=== PATIENT | female | born 1950 | race Two or more races ===

== ENCOUNTER 2023-01-06 12:51 | Inpatient (IN) | payer MEDICARE ==
[~2023-01-06] VITALS: Ht 160 cm; Wt 61.7 kg
[2023-01-06] MEDS ORDERED: AZITHROMYCIN 500 MG in IV D5W 250 ML IV ONE (13:30)
[2023-01-06] MEDS ORDERED: CEFTRIAXONE 1GM BAG (ER ONLY) 50 ML IV ONE ×2 (13:30→13:44)
[2023-01-06 14:22] LABS: BASOPHILS % (AUTO) 0.2 % (0.0-2.0); EOSINOPHILS % (AUTO) 0.1 % (0.0-6.0); HEMATOCRIT 36 % (33-45); HEMOGLOBIN 11.9 g/dL (11.5-14.8); LYMPHOCYTES # (AUTO) 0.6 K/uL (0.8-4.8); LYMPHOCYTES % (AUTO) 4.3 % (20.0-44.0); MEAN CORPUSCULAR HEMOGLOBIN 28 PG (26.0-33.0); MEAN CORPUSCULAR HGB CONC 34 g/dl (31.0-36.0); MEAN CORPUSCULAR VOLUME 83 fL (82-100); MONOCYTES # (AUTO) 1.2 K/uL (0.1-1.30); MONOCYTES % (AUTO) 8.5 % (2.0-12.0); NEUTROPHILS # (AUTO) 12.3 K/uL (1.8-8.9); NEUTROPHILS % (AUTO) 86.9 % (43.0-81.0); PLATELET COUNT (AUTO) 348 K/uL (150-450); RED BLOOD CELL COUNT(AUTO) 4.31 MIL/uL (4.0-5.2); RED CELL DISTRIBUTION WIDTH 15.2 % (11.5-15.0); WHITE BLOOD COUNT (AUTO) 14.2 K/uL (4.3-11.0)
[2023-01-06] MEDS ORDERED: BUPR-319 PO (14:41)
[2023-01-06] MEDS ORDERED: SIMV-46 PO (14:41)
[2023-01-06] MEDS ORDERED: ASPI-1169 PO (14:41)
[2023-01-06] MEDS ORDERED: [UNRECOGNIZED DRUG - OTHER] PO (14:41)
[2023-01-06] MEDS ORDERED: FLUO40CA49 PO (14:41)
[2023-01-06] MEDS ORDERED: CHOL100043 PO (14:41)
[2023-01-06] MEDS ORDERED: OMEP40CA21 PO (14:41)
[2023-01-06 14:51] LABS: CALCIUM, SERUM 9.1 mg/dL (8.5-10.1); CARBON DIOXIDE 25 mmol/L (21-32); CHLORIDE 94 mmol/L (98-107); CREATININE 0.9 mg/dL (0.6-1.3); GLUCOSE 128 mg/dL (74-106); POTASSIUM 4.2 mmol/L (3.5-5.1); SODIUM SERUM 131 mmol/L (136-145); UREA NITROGEN, BLOOD 14 mg/dL (7-18)
[2023-01-06] MEDS ORDERED: BENZONATATE 100 MG CAPSULE PO ONE (14:54)
[2023-01-06] MEDS ORDERED: BENZONATATE 100 MG CAPSULE PO PRN (15:00)
[2023-01-06] MEDS ORDERED: IV NS 0.9% 1,000 ML BAG IV ONE (15:30)
[2023-01-06] MEDS ORDERED: CEFTRIAXONE 1 G in IV D5W 50 ML IV SCH (19:00)
[2023-01-06] MEDS ORDERED: ONDANSETRON HCL/PF 4 MG/2 ML VIAL IVP PRN (19:00)
[2023-01-06] MEDS ORDERED: AZITHROMYCIN 500 MG in IV D5W 250 ML IV SCH (19:00)
[2023-01-06] MEDS ORDERED: IV NS 0.9% 1,000 ML IV PRN (19:00)
[2023-01-06 19:30] VITALS: BP 109/55; TEMP 98.2; O2SAT 95
[2023-01-06 21:51] VITALS: BP 109/55; TEMP 98.2; O2SAT 95
[2023-01-07] MEDS ORDERED: ALBUTEROL HALF STRENGTH 1.25 MG/3 ML VIAL.NEB NEB PRN (00:30)
[2023-01-07] MEDS ORDERED: IPRATROPIUM NEB FS 0.5 MG/2.5 ML AMPUL.NEB NEB PRN (00:30)
[2023-01-07] MEDS ORDERED: GUAIFENESIN 300 MG/15 ML UDC PO PRN (00:30)
[2023-01-07 01:51] VITALS: BP 149/108; TEMP 98.5; O2SAT 95
[2023-01-07 02:15] LABS: ALANINE AMINOTRANSFERASE 62 U/L (12-78); ALBUMIN 3.1 g/dL (3.4-5.0); ALKALINE PHOSPHATASE 104 U/L (46-116); ASPARTATE AMINOTRANSFERASE 52 U/L (15-37); BILIRUBIN,DIRECT 0.1 mg/dL (0.0-0.2); BILIRUBIN,TOTAL 0.4 mg/dL (0.2-1.0); TOTAL PROTEIN, SERUM 7.5 g/dL (6.4-8.2)
[2023-01-07 05:51] VITALS: BP 149/108; TEMP 98.5; O2SAT 95
[2023-01-07 06:22] LABS: BASOPHILS % (AUTO) 0.2 % (0.0-2.0); EOSINOPHILS % (AUTO) 0.2 % (0.0-6.0); HEMATOCRIT 31 % (33-45); HEMOGLOBIN 10.3 g/dL (11.5-14.8); LYMPHOCYTES # (AUTO) 1.1 K/uL (0.8-4.8); LYMPHOCYTES % (AUTO) 9.9 % (20.0-44.0); MEAN CORPUSCULAR HEMOGLOBIN 28 PG (26.0-33.0); MEAN CORPUSCULAR HGB CONC 34 g/dl (31.0-36.0); MEAN CORPUSCULAR VOLUME 83 fL (82-100); MONOCYTES # (AUTO) 1.4 K/uL (0.1-1.30); MONOCYTES % (AUTO) 12.2 % (2.0-12.0); NEUTROPHILS # (AUTO) 8.8 K/uL (1.8-8.9); NEUTROPHILS % (AUTO) 77.5 % (43.0-81.0); PLATELET COUNT (AUTO) 318 K/uL (150-450); RED BLOOD CELL COUNT(AUTO) 3.69 MIL/uL (4.0-5.2); RED CELL DISTRIBUTION WIDTH 14.8 % (11.5-15.0); WHITE BLOOD COUNT (AUTO) 11.3 K/uL (4.3-11.0)
[2023-01-07 06:50] LABS: CALCIUM, SERUM 8.5 mg/dL (8.5-10.1); CREATININE 0.8 mg/dL (0.6-1.3); MAGNESIUM 2.7 mg/dL (1.8-2.4)
[2023-01-07] MEDS: PANTOPRAZOLE 40 MG TABLET.DR PO SCH (07:45)
[2023-01-07 08:00] VITALS: BP 102/42; TEMP 97.8; O2SAT 94
[2023-01-07 08:03] LABS: PHOSPHORUS 2.8 mg/dL (2.5-4.9)
[2023-01-07] MEDS: CHOLECALCIFEROL 1,000 UNIT TABLET (VIT D3) PO SCH (08:37)
[2023-01-07] MEDS: SIMVASTATIN 20 MG TABLET PO SCH (08:38)
[2023-01-07] MEDS: FLUOXETINE HCL 20 MG CAPSULE PO SCH (08:38)
[2023-01-07] MEDS: ASPIRIN 81 MG TAB.CHEW PO SCH (08:38)
[2023-01-07] MEDS: BUPROPION XL 150 MG TAB.ER.24 PO SCH (08:38)
[2023-01-07] MEDS ORDERED: GUAIFENESIN/CODEINE 10 ML UDC PO PRN (11:30)
[2023-01-07] MEDS ORDERED: HYDROCODONE BIT/HOMATROPINE 5 ML UDC PO PRN (11:30)
[2023-01-07 11:37] LABS: APPEARANCE,URINE CLEAR (CLEAR); BILIRUBIN,URINE NEGATIVE (NEGATIVE); BLOOD, URINE NEGATIVE Ery/uL (NEGATIVE); COLOR,URINE YELLOW (YELLOW); KETONES,URINE NEGATIVE (NEGATIVE); LEUKOCYTE ESTERASE ,URINE NEGATIVE (NEGATIVE); NITRITE, URINE NEGATIVE (NEGATIVE); PH,URINE 6.5 (5.0-8.0); PROTEIN,URINE NEGATIVE (NEGATIVE); UGLUCOSE NEGATIVE (NEGATIVE); UROBILINOGEN,URINE 0.2 EU/dL (0.2)
[2023-01-07 11:45] LABS: EOSINOPHIL,URINE None Seen
[2023-01-07 12:14] LABS: CREATININE, URINE 50.8 MG/DL (30.0-125.0); URINE TOTAL PROTEIN 20.5 mg/dL (0-11.9)
[2023-01-07] MEDS: AZITHROMYCIN 500 MG in IV D5W 250 ML IV SCH (13:52)
[2023-01-07] MEDS: CEFTRIAXONE 1 G in IV D5W 50 ML IV SCH (18:25)
[2023-01-07 18:51] VITALS: BP 114/50; TEMP 97.8; O2SAT 96
[2023-01-07 20:00] VITALS: BP 99/52; TEMP 101.5; O2SAT 97
[2023-01-07] MEDS: ACETAMINOPHEN 325 MG TABLET PO PRN (21:26)
[2023-01-08 04:00] VITALS: BP 101/54; TEMP 98.6; O2SAT 97
[2023-01-08 08:00] VITALS: BP 122/54; TEMP 98.6; O2SAT 97
[2023-01-08 08:04] LABS: BASOPHILS % (AUTO) 0.2 % (0.0-2.0); EOSINOPHILS # (AUTO) 0.1 K/uL (0.0-0.7); EOSINOPHILS % (AUTO) 0.7 % (0.0-6.0); HEMATOCRIT 34 % (33-45); HEMOGLOBIN 10.9 g/dL (11.5-14.8); LYMPHOCYTES # (AUTO) 1.3 K/uL (0.8-4.8); LYMPHOCYTES % (AUTO) 8.6 % (20.0-44.0); MEAN CORPUSCULAR HEMOGLOBIN 27 PG (26.0-33.0); MEAN CORPUSCULAR HGB CONC 32 g/dl (31.0-36.0); MEAN CORPUSCULAR VOLUME 84 fL (82-100); MONOCYTES # (AUTO) 1.2 K/uL (0.1-1.30); MONOCYTES % (AUTO) 8.1 % (2.0-12.0); NEUTROPHILS # (AUTO) 12.2 K/uL (1.8-8.9); NEUTROPHILS % (AUTO) 82.4 % (43.0-81.0); PLATELET COUNT (AUTO) 384 K/uL (150-450); RED BLOOD CELL COUNT(AUTO) 4.11 MIL/uL (4.0-5.2); RED CELL DISTRIBUTION WIDTH 15.3 % (11.5-15.0); WHITE BLOOD COUNT (AUTO) 14.8 K/uL (4.3-11.0)
[2023-01-08] MEDS: BUPROPION XL 150 MG TAB.ER.24 PO SCH (08:13)
[2023-01-08] MEDS: CHOLECALCIFEROL 1,000 UNIT TABLET (VIT D3) PO SCH (08:13)
[2023-01-08] MEDS: SIMVASTATIN 20 MG TABLET PO SCH (08:13)
[2023-01-08] MEDS: FLUOXETINE HCL 20 MG CAPSULE PO SCH (08:13)
[2023-01-08] MEDS: ASPIRIN 81 MG TAB.CHEW PO SCH (08:14)
[2023-01-08] MEDS: PANTOPRAZOLE 40 MG TABLET.DR PO SCH (08:14)
[2023-01-08 08:16] LABS: CALCIUM, SERUM 8.8 mg/dL (8.5-10.1); CREATININE 0.8 mg/dL (0.6-1.3); POTASSIUM 3.9 mmol/L (3.5-5.1)
[2023-01-08] MEDS: PSEUDOEPHEDRINE HCL 30 MG TABLET PO PRN ×2 (09:54→22:57)
[2023-01-08] MEDS: AZITHROMYCIN 500 MG in IV D5W 250 ML IV SCH (13:08)
[2023-01-08] MEDS: ACETAMINOPHEN 325 MG TABLET PO PRN (15:48)
[2023-01-08 16:20] VITALS: BP 114/56; TEMP 99; O2SAT 97
[2023-01-08] MEDS: CEFTRIAXONE 1 G in IV D5W 50 ML IV SCH (17:27)
[2023-01-08 20:00] VITALS: BP 119/83; TEMP 99; O2SAT 92
[2023-01-09 04:00] VITALS: BP 101/62; TEMP 99.3; O2SAT 96
[2023-01-09 06:24] LABS: BASOPHILS # (AUTO) 0.1 K/uL (0.0-0.2); BASOPHILS % (AUTO) 0.5 % (0.0-2.0); EOSINOPHILS # (AUTO) 0.1 K/uL (0.0-0.7); EOSINOPHILS % (AUTO) 0.9 % (0.0-6.0); HEMATOCRIT 32 % (33-45); HEMOGLOBIN 10.6 g/dL (11.5-14.8); LYMPHOCYTES # (AUTO) 1.3 K/uL (0.8-4.8); LYMPHOCYTES % (AUTO) 7.9 % (20.0-44.0); MEAN CORPUSCULAR HEMOGLOBIN 28 PG (26.0-33.0); MEAN CORPUSCULAR HGB CONC 33 g/dl (31.0-36.0); MEAN CORPUSCULAR VOLUME 83 fL (82-100); MONOCYTES # (AUTO) 1.5 K/uL (0.1-1.30); NEUTROPHILS # (AUTO) 13.2 K/uL (1.8-8.9); NEUTROPHILS % (AUTO) 81.7 % (43.0-81.0); PLATELET COUNT (AUTO) 392 K/uL (150-450); RED BLOOD CELL COUNT(AUTO) 3.85 MIL/uL (4.0-5.2); RED CELL DISTRIBUTION WIDTH 15.1 % (11.5-15.0); WHITE BLOOD COUNT (AUTO) 16.2 K/uL (4.3-11.0)
[2023-01-09 08:00] VITALS: BP 103/44; TEMP 98.6; O2SAT 96
[2023-01-09] MEDS: BUPROPION XL 150 MG TAB.ER.24 PO SCH (08:20)
[2023-01-09] MEDS: SIMVASTATIN 20 MG TABLET PO SCH (08:20)
[2023-01-09] MEDS: ASPIRIN 81 MG TAB.CHEW PO SCH (08:20)
[2023-01-09] MEDS: FLUOXETINE HCL 20 MG CAPSULE PO SCH (08:20)
[2023-01-09] MEDS: PANTOPRAZOLE 40 MG TABLET.DR PO SCH (08:20)
[2023-01-09] MEDS: CHOLECALCIFEROL 1,000 UNIT TABLET (VIT D3) PO SCH (08:21)
[2023-01-09 08:29] LABS: CALCIUM, SERUM 8.7 mg/dL (8.5-10.1); CREATININE 0.7 mg/dL (0.6-1.3); MAGNESIUM 2.3 mg/dL (1.8-2.4); PHOSPHORUS 4.1 mg/dL (2.5-4.9)
[2023-01-09] MEDS ORDERED: BENZ-13 PO (10:57)
[2023-01-09] MEDS ORDERED: LEVO500T90 PO (10:57)
[2023-01-09] MEDS ORDERED: PSEU120T57 PO (11:53)
[2023-01-09] MEDS ORDERED: LEVO750T46 PO (11:53)
[2023-01-09] MEDS ORDERED: GUAI5SYR4 PO (11:53)
[2023-01-09 18:46] LABS: ABG BASE EXCESS 3.1 mmol/L; ABG OXYGEN SATURATION 92.9 % (92.0-98.5); ABG PCO2 35.5 mmHg (35.0-45.0); ABG PH 7.488 (7.350-7.450); ABG PO2 63.6 mmHg (75.0-100.0); ABG TOTAL HEMOGLOBIN 11.9 G/dL (12.0-16.0); AaDO2 43.6 mmHg; COHb 0.3 % (0.5-1.5); MetHb 0.2 % (0.0-1.5); O2Hb 92.4 % (94.0-97.0); SITE, ABG Right Brachial; VENT MODE, BG 21%
== END 2023-01-09 13:30 | disposition home or self-care (01) | DRG 871 ==
LOC: ER 12:58 → TELE1 18:00 → MEDSG1 01-07 11:28
PROVIDERS: ADMIT Nurse Practitioner Acute Care; ATTEND Nurse Practitioner Acute Care
DX: A41.50 Gram-negative sepsis, unspecified (principal); J15.69 Pneumonia due to other Gram-negative bacteria; J96.01 Acute respiratory failure with hypoxia; E87.1 Hypo-osmolality and hyponatremia; E87.20 Acidosis, unspecified; E78.5 Hyperlipidemia, unspecified; M94.0 Chondrocostal junction syndrome [Tietze]; Z79.82 Long term (current) use of aspirin; Z79.899 Other long term (current) drug therapy; E86.9 Volume depletion, unspecified; K21.9 Gastro-esophageal reflux disease without esophagitis; Z87.09 Personal history of other diseases of the respiratory system; R65.20 Severe sepsis without septic shock; Z20.822 Contact with and (suspected) exposure to COVID-19
CPT/HCPCS: 36415; 36600; 70220-TC; 71045-TC; 80048-TC; 80076-TC; 82570-TC; 82803-TC; 83605-TC; 83735-TC; 84100-TC; 84300-TC; 84484-TC; 85025-TC; 87040-TC; A4223; C9803; G0378; J0456; J0696; J7030; J7050; J7060